=== PATIENT | male | born 1960 | race Hispanic/Latino ===

== ENCOUNTER → 2019-10-31 | Outpatient (CLI) | payer OTHER ==
--- NOTE | 2019-10-31 08:26 | Diagnostic Imaging Report ---
EXAMINATION: PA and lateral views of the chest. COMPARISON: None CLINICAL HISTORY: Suspected bronchitis, cough, weakness DISCUSSION: The lungs are well-inflated. No focal airspace consolidation. Hazy prominence of the interstitial markings throughout the lungs. No pleural effusion or pneumothorax. Borderline enlargement of the cardiomediastinal contour. Tortuous thoracic aorta. No acute osseous abnormalities. IMPRESSION: Prominence of the pulmonary interstitial markings concerning for viral or atypical pneumonia in the clinical setting of cough and weakness. Signed by: Dr. Angel Foley M.D. on 10/31/2019 8:23 AM
== END ==
LOC: RAD 07:09
PROVIDERS: ATTEND Internal Medicine
DX: J40 Bronchitis, not specified as acute or chronic (principal); J06.9 Acute upper respiratory infection, unspecified
CPT/HCPCS: 71046

== ENCOUNTER → 2022-07-29 | Outpatient (CLI) | payer OTHER | LOC: MRI 13:13 | PROVIDERS: ATTEND Radiology Neuroradiology | DX: G95.89 Other specified diseases of spinal cord (principal); M47.14 Other spondylosis with myelopathy, thoracic region | CPT/HCPCS: 72141; 72146 ==

== ENCOUNTER → 2024-01-27 | Day surgery (SDC) | payer OTHER ==
[~2024-01-27] MED LIST: ALTACE5 MG PO; APPLE CIDER VI300 MG; ATORVASTATIN CA20 MG PO; B-123000 MCG; FENTANYL CITRATE/PF 100MCG/2 ML INJ ONE; HYOSCYAMINE SULFATE 0.5 MG/ML INJ ONE; LIDOCAINE HCL 2% LOCAL INJ 5 ML SDV VIAL INJ ONE; METFORMIN HCL500 M1 PO; NOVOLOG MI100 UNIT/1 SC; OZEMPIC2 MG/0.75; PROPOFOL IV EMULSION 10 MG/ML 20 ML VIAL ONE; PROPOFOL IV EMULSION 10 MG/ML 50 ML VIAL IV ONE; RAMIPRIL5 MG PO; TRESIBA FL200 UNIT/1 SQ
[2024-01-27] MEDS: LACTATED RINGER'S 1,000 ML ONE (09:17)
[2024-01-27 12:20] VITALS: BP 115/80; PULSE 70; RESP 16; O2SAT 97
== END | disposition home or self-care (01) ==
LOC: OR 08:58
PROVIDERS: ATTEND Internal Medicine Gastroenterology
DX: Z12.11 Encounter for screening for malignant neoplasm of colon (principal); D12.3 Benign neoplasm of transverse colon; K63.5 Polyp of colon; K64.8 Other hemorrhoids; I10 Essential (primary) hypertension; E78.5 Hyperlipidemia, unspecified; E11.9 Type 2 diabetes mellitus without complications; Z79.85 Long-term (current) use of injectable non-insulin antidiabetic drugs; Z79.4 Long term (current) use of insulin; Z79.84 Long term (current) use of oral hypoglycemic drugs; I49.1 Atrial premature depolarization; R00.1 Bradycardia, unspecified; Z01.810 Encounter for preprocedural cardiovascular examination; Z79.899 Other long term (current) drug therapy
CPT/HCPCS: 45385; 93005; J1980; J2003; J2704 ×2; J7121; 45378